=== PATIENT | male | born 1965 | race Caucasian/White ===

== ENCOUNTER 2017-11-25 14:31 | Emergency (ER) | payer BC ==
[~2017-11-25] VITALS: Ht 172.7 cm; Wt 71.1 kg
[~2017-11-25 14:31] MED LIST: PERCOCET 5/31 TABLET PO; PREDNISONE20 MG PO; VALIUM5 MG PO
[2017-11-25] MEDS ORDERED: INDOCIN50 MG PO (17:14)
[2017-11-25 17:25] VITALS: BP 108/82
== END 2017-11-25 17:27 | disposition home or self-care (01) ==
LOC: EME 14:31
DX: M25.551 Pain in right hip (principal); G89.29 Other chronic pain; Z87.891 Personal history of nicotine dependence
CPT/HCPCS: 73502; 99281; 99284